=== PATIENT | male | born 1970 | race Hispanic/Latino ===

== ENCOUNTER 2024-01-09 12:40 | Emergency (ER) | payer OTHER ==
[2024-01-09] MEDS ORDERED: KETOROLAC 30 MG/ML INJ ONE (13:08)
[2024-01-09] MEDS ORDERED: NA CHLORIDE 0.9% 1,000 ML ONE (13:08)
[2024-01-09 13:46] LABS: Absolute Eosinophils 0.1 K/uL (0-0.5); Absolute Lymphocytes (CBC) 1.3 K/uL (0.7-4.9); Absolute Monocytes 0.3 K/uL (0.1-1.3); Absolute Neutrophil 2.9 K/uL (1.8-8.0); Basophils % 0.4 % (0-1.3); Eosinophils % 1.5 % (0-4.4); Hemoglobin 11.4 g/dL (13.6-17.9); Lymphocytes % 28.3 % (15.3-44.8); MCH 37.3 pg (27.0-35.0); MCHC 32.6 g/dL (32.0-36.0); MCV 114.4 fL (80-100); MPV 9.6 fL (7.6-11.3); Monocytes % 5.6 % (3.3-12.3); Neutrophils % 64.2 % (41.7-73.7); Platelets 151 thou/uL (152-406); RBC Red Blood Cell Count 3.06 M/uL (4.33-5.43); Red Cell Distribution Width 15.9 % (12.1-15.2)
[2024-01-09 13:47] LABS: Sqamous Epithelial <5 /HPF (None Seen); Urine Bacteria <20 /HPF (<20); Urine Bilirubin NEGATIVE (Negative); Urine Blood 1+ (Negative); Urine Clarity Turbid (Clear); Urine Color Yellow (Yellow); Urine Crystals Unidentified Few /HPF (None Seen); Urine Culture Reflex Order NOT NEEDED; Urine Glucose NEGATIVE (Negative); Urine Ketones NEGATIVE (Negative); Urine Microscopic Reflex YN ORDER UMIC; Urine Mucus 4+ /HPF (None Seen); Urine Nitrite NEGATIVE (Negative); Urine Protein 1+ (Negative); Urine Urobilinogen 3+ (Normal); Urine WBC <5 /HPF (<5)
[2024-01-09 13:57] LABS: Albumin 3.8 g/dL (3.4-5.0); Albumin/Globulin Ratio 1.2 (1.1-1.8); Anion Gap 4.9 mEq/L (5.0-15.0); Bilirubin Total 0.7 mg/dL (0.2-1.0); Globulin 3.2 g/dL (2.3-3.5); Potassium 3.9 mEq/L (3.5-5.1); Troponin High Sensitivity 19.5 pg/mL (<58.9)
[2024-01-09] MEDS ORDERED: MORPHINE 4 MG/ML SYR ONE (14:22)
[2024-01-09] MEDS ORDERED: ONDANSETRON 4 MG/2 ML VIAL ONE (14:22)
--- NOTE | 2024-01-09 14:57 | RAD REPORT ---
EXAM DESCRIPTION: Claire Single View01/09/2024 1:42 pm CLINICAL HISTORY: ABD PAIN COMPARISON: No comparisons TECHNIQUE: Portable AP view of the chest. FINDINGS: The lungs are clear. No pneumothorax or effusion. The cardiomediastinal contours are unre markable. IMPRESSION: No acute cardiopulmonary process.
--- NOTE | 2024-01-09 15:31 | RAD REPORT ---
EXAM DESCRIPTION: CT - Abdomen Pelvis W Contrast - 01/09/2024 2:41 pm CLINICAL HISTORY: abdominal pain COMPARISON: No comparisons TECHNIQUE: Thin cut axial CT imaging of the abdomen and pelvis was performed following intravenous a dministration of iodinated contrast. Multiplanar reformats were generated and reviewed. All CT scans are performed using dose optimization technique as appropriate and may include automated exposure control or mA/KV adjustment according to patient size. FINDINGS: No suspicious findings in the lung bases. The liver, spleen, adrenal glands and pancreas show no suspicious findings. Gallbladder and biliary t ree are also without suspicious finding. Symmetric renal function is seen with no hydronephrosis or suspicious renal mass. Mildly prominent fluid-filled lower abdominal small bowel loops. No bowel wall thickening. No free ai r, free fluid or inflammatory stranding. No hernia, mass or bulky lymphadenopathy. The urinary bladde r is without significant finding. No suspicious bony findings. IMPRESSION: Mildly prominent fluid-filled lower abdominal small bowel loops. This is nonspecific and may relate to mild enteritis or diarrheal state. No other acute intra-abdominal process.
[2024-01-09 15:34] LABS: Anisocytosis 1+; Blood Morphology Comment NOTED (NOT SEEN); Macrocytosis 2+; Platelet Estimate ADEQ; Toxic Granulation 1+; White Blood Cell Scan OK (OK)
--- NOTE | 2024-01-09 15:43 | EDPHYS ---
Physician Documentation [facility] Name: Chan Dee Age: 53 yrs Sex: Male : 1970 Arrival Date: 01/09/2024 Time: 12:40 Bed 13 Private MD: ED Physician Sadiq Abdi HPI: 01/08 15:18 This 53 yrs old Male presents to ER via Ambulatory with complaints of kb Abdominal Pain. 15:18 Pt is a 53 year old male who presents for LUQ pain that radiates to the back. STates it kb started one week ago. Denies shortness of breath, fever, n/v/d. . Historical: - Allergies: 13:00 No Known Allergies; aa5 - PMHx: 13:00 None; aa5 - PSHx: 13:00 left knee; aa5 - Immunization history:: Adult Immunizations unknown. - Infectious Disease History:: Denies. - Social history:: Smoking status: Patient reports the use of cigarette tobacco products. ROS: 15:18 Constitutional: As per HPI kb Exam: 13:23 Constitutional: This is a well developed, well nourished patient who is awake, alert, kb and in no acute distress. Head/Face: Normocephalic, atraumatic. ENT: Moist Mucous membranes Cardiovascular: Regular rate Respiratory: Respirations even and unlabored. No increased work of breathing. Talking in full sentences Skin: Warm, dry with normal turgor. Normal color. MS/ Extremity: Pulses equal, no cyanosis. Neurovascular intact. Full, normal range of motion. Neuro: Awake and alert, GCS 15, oriented to person, place, time, and situation. Moves all extremities. Normal gait. 13:23 ECG was reviewed by the Attending Physician. 13:23 Abdomen/GI: Inspection: abdomen appears normal, Bowel sounds: normal, Palpation: soft, kb in all quadrants, mild abdominal tenderness, in the left upper quadrant, Vital Signs: 12:59 BP 147 / 98; Pulse 86; Resp 18 S; Temp 97.6(TE); Pulse Ox 97% on R/A; Weight 66.68 kg aa5 (R); Height 5 ft. 10 in. (R); 14:28 BP 112 / 80; Pulse 66; Resp 16 S; Pulse Ox 100% on R/A; kc6 15:27 BP 125 / 74; Pulse 82; Resp 16 S; Pulse Ox 100% on R/A; kc6 12:59 Body Mass Index 21.09 (66.68 kg, 177.8 cm) aa5 MDM: 12:43 Patient medically screened. kb 15:18 Data reviewed: vital signs, nurses notes. kb 15:50 Differential diagnosis: gastritis, myocardia ischemia or infarction, non-specific abd kb pain, pancreatitis. Historians other than the Patient: Family Member: family. Counseling: I had a detailed discussion with the patient and/or guardian regarding the historical points, exam findings, and any diagnostic results supporting the discharge/admit diagnosis, lab results, radiology results, the need for outpatient follow up, a family practitioner, to return to the emergency department if symptoms worsen or persist or if there are any questions or concerns that arise at home. 01/08 13:35 Order name: Comprehensive Metabolic Panel; Complete Time: 14:06 EDMS 01/08 13:35 Order name: Troponin High Sensitivity; Complete Time: 14:06 EDMS 01/08 13:35 Order name: Lipase; Complete Time: 14:06 EDMS 01/08 13:35 Order name: CBC with Automated Diff; Complete Time: 15:35 EDMS 01/08 13:35 Order name: Urinalysis w/ reflexes; Complete Time: 13:49 EDMS 04 15:34 Order name: CBC Smear Scan; Complete Time: 15:35 EDMS 01/08 13:10 Order name: Chest Single View; Complete Time: 15:00 EDMS 01/08 14:15 Order name: Abdomen ; Complete Time: 15:35 EDMS 01/08 13:01 Order name: EKG; Complete Time: 15:53 kb 01/08 13:01 Order name: IV Saline Lock; Complete Time: 13:24 kb 01/08 13:01 Order name: Labs collected and sent; Complete Time: 13:24 kb 01/08 13:01 Order name: EKG - Nurse/Tech; Complete Time: 13:24 kb EC:23 Rate is 81 beats/min. Rhythm is regular. QRS [place] is Normal. NE interval is normal at kb 154 msec. QRS interval is normal at 90 msec. QT interval is normal at 446 msec. Administered Medications: 13:24 Drug: NS 0.9% IV 1000 ml IV at 1 bolus Per protocol; 1000 mL bolus Route: IV; Rate: 1 kc6 bolus; Site: right antecubital; 14:27 Follow up: Response: No adverse reaction; IV Status: Completed infusion; IV Intake: kc6 1000ml 13:25 Drug: TORadol - Ketorolac IVP 15 mg IVP once Route: IVP; Site: right antecubital; kc6 14:27 Follow up: Response: No adverse reaction; Pain is unchanged, physician notified 6 14:27 Drug: morphine IVP or IV 4 mg IVP once over 4 mins Route: IVP; Infused Over: 4 mins; kc6 Site: right antecubital; 15:26 Follow up: Response: No adverse reaction; Pain is decreased; RASS: Alert and Calm (0) 6 14:27 Drug: Ondansetron IVP 4 mg IVP once; over 2 minutes Route: IVP; Site: right antecubital;kc6 15:26 Follow up: Response: No adverse reaction kc6 Disposition Summary: 01/09/24 15:43 Discharge Ordered Notes: Location: Home kb Condition: Stable kb Diagnosis - Upper abdominal pain, unspecified kb Followup: kb - With: Emergency Department - When: As needed - Reason: Worsening of condition Followup: kb - With: Private Physician - When: 2 - 3 days - Reason: Recheck today's complaints, Continuance of care, Re-evaluation by your physician Discharge Instructions: - Discharge Summary Sheet kb - Abdominal Pain, Adult, [id number] kb Forms: - Medication Reconciliation Form kb - Antibiotic Education kb - Prescription Opioid Use kb - Patient Portal Instructions kb - Leadership Thank You Letter kb Prescriptions: - dicyclomine 20 mg Oral tablet - take 1 tablet ORAL route 4 times per day As needed; 20 tablet; Refills: 0, kb Product Selection Permitted Addendum: 01/10/2024 17:18 I was immediately available for consultation during this patient's visit. I did not e c2 personally see the patient or discuss the patient with the PEYTON. . Signatures: Dispatcher [employer] Nery Faulkner, RAINA GALLEGOS-Arleen Mcneill RN RN aa5 Judie Alonzo RN RN [email or web address] Sadiq Abdi MD MD ec2 Corrections: (The following items were deleted from the chart) 01/08 15:53 15:53 CBC+H.LAB.BRZ ordered. EDMS EDMS 15:53 15:53 COMPREHENSIVE METABOLIC PANEL+C.LAB.BRZ ordered. EDMS EDMS 15:53 15:53 LIPASE+C.LAB.BRZ ordered. EDMS EDMS 15:53 15:53 Urinalysis+U.LAB.BRZ ordered. EDMS EDMS 15:53 15:53 Troponin High Sensitivity+C.LAB.BRZ ordered. EDMS EDMS
--- NOTE | 2024-01-09 15:43 | ER ---
Nurse's Notes [facility] Name: Chan Dee Age: 53 yrs Sex: Male : 1970 Arrival Date: 01/09/2024 Time: 12:40 Bed 13 Private MD: Diagnosis: Upper abdominal pain, unspecified Presentation: 01/08 12:59 Chief complaint: Patient states: LUQ pain radiating around to back that began 1 week aa5 ago. 12:59 Acuity: STEVEN 3 aa5 12:59 Coronavirus screen: At this time, the client does not indicate any symptoms associated aa5 with coronavirus-19. Ebola Screen: Patient denies travel to an Ebola-affected area in the 21 days before illness onset. Initial Sepsis Screen: Does the patient meet any 2 criteria? No. Patient's initial sepsis screen is negative. Does the patient have a suspected source of infection? No. Patient's initial sepsis screen is negative. Risk Assessment: Do you want to hurt yourself or someone else? Patient reports no desire to harm self or others. Onset of symptoms was January 2024. 12:59 Method Of Arrival: Ambulatory aa5 Historical: - Allergies: 13:00 No Known Allergies; aa5 - PMHx: 13:00 None; aa5 - PSHx: 13:00 left knee; aa5 - Immunization history:: Adult Immunizations unknown. - Infectious Disease History:: Denies. - Social history:: Smoking status: Patient reports the use of cigarette tobacco products. Screenin:34 [facility] ED Fall Risk Assessment (Adult) History of falling in the last 3 months, kc6 including since admission No falls in past 3 months (0 pts) Confusion or Disorientation No (0 pts) Intoxicated or Sedated No (0 pts) Impaired Gait No (0 pts) Mobility Assist Device Used No (0 pt) Altered Elimination No (0 pt) Score/Fall Risk Level 0 - 2 = Low Risk. Abuse screen: Denies threats or abuse. Denies injuries from another. Nutritional screening: No deficits noted. Tuberculosis screening: No symptoms or risk factors identified. Assessment: 13:35 General: Appears in no apparent distress. comfortable, well groomed, well developed, kc6 Behavior is calm, cooperative, appropriate for age. Pain: Complains of pain in left lateral anterior chest and left lateral posterior chest Pain does not radiate. Pain began 1 day ago. Neuro: Level of Consciousness is awake, alert, obeys commands, Oriented to person, place, time, situation, Appropriate for age. Cardiovascular: Capillary refill < 3 seconds. Respiratory: Airway is patent Trachea midline Respiratory effort is even, unlabored, Respiratory pattern is regular, symmetrical. GI: Patient currently denies diarrhea, nausea, vomiting. : No signs and/or symptoms were reported regarding the genitourinary system. EENT: No signs and/or symptoms were reported regarding the EENT system. Derm: No signs and/or symptoms reported regarding the dermatologic system. Skin is intact, is healthy with good turgor, Skin is pink, warm \T\ dry. Musculoskeletal: No signs and/or symptoms reported regarding the musculoskeletal system. Circulation, motion, and sensation intact. Capillary refill < 3 seconds, Range of motion: intact in all extremities. 14:27 Reassessment: Patient appears in no apparent distress at this time. No changes from kc6 previously documented assessment. Patient and/or family updated on plan of care and expected duration. Pain level reassessed. Patient is alert, oriented x 3, equal unlabored respirations, skin warm/dry/pink. Patient states symptoms have not improved. 15:27 Reassessment: Patient appears in no apparent distress at this time. No changes from kc6 previously documented assessment. Patient and/or family updated on plan of care and expected duration. Pain level reassessed. Patient is alert, oriented x 3, equal unlabored respirations, skin warm/dry/pink. Vital Signs: 12:59 BP 147 / 98; Pulse 86; Resp 18 S; Temp 97.6(TE); Pulse Ox 97% on R/A; Weight 66.68 kg aa5 (R); Height 5 ft. 10 in. (R); 14:28 BP 112 / 80; Pulse 66; Resp 16 S; Pulse Ox 100% on R/A; kc6 15:27 BP 125 / 74; Pulse 82; Resp 16 S; Pulse Ox 100% on R/A; kc6 12:59 Body Mass Index 21.09 (66.68 kg, 177.8 cm) aa5 ED Course: 12:41 Patient arrived in ED. ec2 12:41 Sadiq Abdi MD is Attending Physician. ec2 12:43 Nery Ivy FNP-C [facility]. kb 12:59 Arm band placed on. aa5 13:02 Triage completed. aa5 13:06 Judie Alonzo, RN is Primary Nurse. kc6 13:33 Missed attempt(s): 20 gauge in right forearm. Inserted saline lock: 20 gauge in right kc6 antecubital area, using aseptic technique. Blood collected. Flushed with 10 mL NS. 13:34 Patient has correct armband on for positive identification. Bed in low position. Call kc6 light in reach. Side rails up X 1. Adult w/ patient. Pulse ox on. NIBP on. Pillow given. 13:44 Chest Single View In Process Unspecified. EDMS 14:43 Abdomen In Process Unspecified. EDMS 15:55 No provider procedures requiring assistance completed. IV discontinued, intact, kc6 bleeding controlled, No redness/swelling at site. Pressure dressing applied. Administered Medications: 13:24 Drug: NS 0.9% IV 1000 ml IV at 1 bolus Per protocol; 1000 mL bolus Route: IV; Rate: 1 kc6 bolus; Site: right antecubital; 14:27 Follow up: Response: No adverse reaction; IV Status: Completed infusion; IV Intake: kc6 1000ml 13:25 Drug: TORadol - Ketorolac IVP 15 mg IVP once Route: IVP; Site: right antecubital; kc6 14:27 Follow up: Response: No adverse reaction; Pain is unchanged, physician notified kc6 14:27 Drug: morphine IVP or IV 4 mg IVP once over 4 mins Route: IVP; Infused Over: 4 mins; kc6 Site: right antecubital; 15:26 Follow up: Response: No adverse reaction; Pain is decreased; RASS: Alert and Calm (0) kc6 14:27 Drug: Ondansetron IVP 4 mg IVP once; over 2 minutes Route: IVP; Site: right antecubital;kc6 15:26 Follow up: Response: No adverse reaction kc6 Medication: 15:55 VIS not applicable for this client. kc6 Intake: 14:27 IV: 1000ml; Total: 1000ml. kc6 Outcome: 15:43 Discharge ordered by . omar 15:55 Discharged to home ambulatory, with family, kc6 15:55 Condition: good 15:55 Discharge instructions given to patient, family, Instructed on discharge instructions, follow up and referral plans. medication usage, Demonstrated understanding of instructions, follow-up care, medications, Prescriptions given X 1, 15:55 Patient left the ED. kc6 Signatures: Dispatcher [employer] EDNery Dominguez, PASSENGER SERVICE AGENT-C PASSENGER SERVICE AGENT-Arleen Mcneill, RN RN aa5 Judie Alonzo RN RN kc6 Sadiq Abdi MD MD ec2
[2024-01-09 18:20] VITALS: TEMP 97.6
[2024-01-09 18:25] VITALS: O2SAT 100
[2024-01-09 18:26] VITALS: BP 125/74
--- NOTE | 2024-01-10 16:59 | EKG ---
Test Date: 2024-01-09 Test Time: 13:20:03 [employer] Instructor: DOV MEASUREMENT RESULTS: Intervals: Rate: 81 CT: 154 QRSD: 90 QT: 384 QTc: 446 [place]: P: 51 CT: 154 QRS: 56 T: 42 INTERPRETIVE STATEMENTS: Normal sinus rhythm Minimal voltage criteria for LVH, may be normal variant Borderline ECG No previous ECG available for comparison Electronically Signed On 01-10-24 16:57:04 CDT by Venkatesh Garcia
== END 2024-01-09 15:55 | disposition home or self-care (01) ==
LOC: ER 12:40
DX: R10.12 Left upper quadrant pain (principal)
CPT/HCPCS: 93005; 85025; 81001; 36415; 84484; 83690; 80053; 74177; 71045; Q9967; J2405; J7030; 96361; 96374; 96375; 99284